=== PATIENT | male | born 1965 | race Caucasian/White ===

== ENCOUNTER 2020-05-29 16:35 | Emergency (ER) | payer MEDICAID, MEDICARE ==
[~2020-05-29] VITALS: Ht 182.9 cm; Wt 91.0 kg
[2020-05-29 16:49] VITALS: BP 129/79
[2020-05-29] MEDS ORDERED: OXYcodone/APAP 5/325MG TABLET PO ONE (17:30)
--- NOTE | 2020-05-29 17:34 | NUR ---
THROUGHPUT: Jillian TO REVIEW PT INS.
[2020-05-29] MEDS ORDERED: OXYcodone/APAP 5/325MG TABLET ONE (17:36)
[2020-05-29 17:48] LABS: BASOPHILS # (AUTO) 0.02 x10^3/uL (0-0.1); BASOPHILS % (AUTO) 0 % (0-1); EOSINOPHILS # (AUTO) 0.16 x10^3/uL (0-0.4); EOSINOPHILS % (AUTO) 2 % (1-7); LYMPHOCYTES # (AUTO) 1.28 x10^3/uL (1-3.4); LYMPHOCYTES % (AUTO) 16 % (22-44); MD NO; MEAN CORPUSCULAR HEMOGLOBIN 33.5 pg (27.5-34.5); MEAN CORPUSCULAR HGB CONC 33.7 g/dL (33.2-36.2); MEAN PLATELET VOLUME 8.2 fL (7.4-10.4); MONOCYTES # (AUTO) 0.72 x10^3/uL (0.2-0.8); MONOCYTES % (AUTO) 9 % (2-9); NEUTROPHILS # (AUTO) 5.81 x10^3/uL (1.8-6.8); NEUTROPHILS % (AUTO) 73 % (42-75); PLATELET COUNT 383 x10^3/uL (130-400); RED BLOOD COUNT 4.02 x10^6/uL (4.38-5.82); RED CELL DISTRIBUTION WIDTH 14.6 % (9.4-14.8)
[2020-05-29 18:02] LABS: ALANINE AMINOTRANSFERASE 60 U/L (12-78); ALBUMIN 3.2 g/dL (3.4-5.0); ANION GAP 9 mmol/L (5-15); CALCIUM 8.9 mg/dL (8.5-10.1); CHLORIDE 106 mmol/L (98-107); SALICYLATE LEVEL 3.3 mg/dL (2.8-20.0)
[2020-05-29 18:12] LABS: ALKALINE PHOSPHATASE 155 U/L (45-117); BILIRUBIN,TOTAL 0.3 mg/dL (0.2-1.0); CREATININE 0.93 mg/dL (0.7-1.3); TOTAL PROTEIN 6.8 g/dL (6.4-8.2)
--- NOTE | 2020-05-29 18:19 | NUR ---
INDUSTRIAL ENGINEERING DIRECTOR AT BEDSIDE. ASSESSMENT IN PROGRESS
--- NOTE | 2020-05-29 18:34 | NUR ---
THROUGHPUT: [facility] (NO) TO SEE PT TO DETERMINE IF THEY WILL ACCEPT PT.
--- NOTE | 2020-05-29 18:49 | NUR ---
PT ON HOSPITAL BED. DENIES FURTHER NEEDS AT THIS TIME
[2020-05-29 19:02] LABS: AMPHETAMINE SCREEN, URINE Negative (Negative); BARBITURATE SCREEN, URINE Negative (Negative); BENZODIAZEPINE SCREEN, URINE Negative (Negative); CANNABINOID SCREEN, URINE Negative (Negative); COCAINE SCREEN, URINE Negative (Negative); METHADONE SCREEN, URINE Negative (Negative); OPIATE SCREEN, URINE Negative (Negative)
--- NOTE | 2020-05-29 19:24 | NUR ---
KESHAV RN: PACKET FAXED TO [facility], [facility]
--- NOTE | 2020-05-29 19:41 | NUR ---
[facility] ACCEPT PT PER NO
--- NOTE | 2020-05-29 19:42 | NUR ---
PATIENT IS SLEEPING COMFORTABLY ON HOSPITAL BED, NAD, SITTER OUTSIDE ROOM. AWAITING FOR PLACEMENT RN WILL CONTINUE TO MONITOR
[2020-05-29] MEDS ORDERED: TRAZODONE 100MG TABLET PO SCH (21:00)
[2020-05-29] MEDS ORDERED: DULOXETINE 20 MG CAPSULE.DR PO SCH (21:00)
[2020-05-29] MEDS ORDERED: OLANZAPINE 10 MG TABLET PO SCH (21:00)
[2020-07-05] MEDS ORDERED: TRAZ-175 PO (12:54)
[2020-07-05] MEDS ORDERED: DULO20CA18 PO (12:54)
[2020-07-05] MEDS ORDERED: HYDR50TA99 PO (12:54)
[2020-07-05] MEDS ORDERED: BUPR100T11 PO (12:54)
[2020-07-05] MEDS ORDERED: LIDO700A20 TD (12:54)
[2020-07-05] MEDS ORDERED: CARIPRAZINE PO (12:54)
== END 2020-05-30 07:43 | disposition other institution (70) ==
LOC: ED 19:00
DX: R45.851 Suicidal ideations (principal); F33.9 Major depressive disorder, recurrent, unspecified; E11.9 Type 2 diabetes mellitus without complications; J44.9 Chronic obstructive pulmonary disease, unspecified; G89.29 Other chronic pain; F17.200 Nicotine dependence, unspecified, uncomplicated; Z90.89 Acquired absence of other organs; Z86.73 Personal history of transient ischemic attack (TIA), and cerebral infarction without residual deficits
CPT/HCPCS: 36415; 80053; 80307; 84443; 85025; 99284

== ENCOUNTER 2020-05-29 20:13 | Inpatient (IN) | payer MEDICARE ==
[~2020-05-29] VITALS: Ht 182.9 cm; Wt 90.0 kg
[2020-05-29] MEDS ORDERED: ONDANSETRON ODT 4 MG PO PRN (20:30)
[2020-05-29] MEDS ORDERED: ACETAMINOPHEN 325 MG TABLET PO PRN (20:30)
[2020-05-29] MEDS ORDERED: POLYETHYLENE GLYCOL 17 GM PACKET PO PRN (20:30)
[2020-05-29] MEDS ORDERED: BISACODYL 10 MG SUPP PR PRN (20:30)
[2020-05-29] MEDS ORDERED: DOCUSATE 100 MG CAPSULE PO PRN (20:30)
[2020-05-29] MEDS ORDERED: OLANZAPINE 10 MG TABLET PO SCH (21:00)
[2020-05-29] MEDS ORDERED: PLEASE ENTER HEIGHT AND WEIGHT MC SCH (21:00)
[2020-05-29 21:04] VITALS: BP 134/81
[2020-05-29 21:32] VITALS: BP 134/81
[2020-05-29] MEDS: DULOXETINE 20 MG CAPSULE.DR PO SCH (21:43)
[2020-05-29] MEDS: TRAZODONE 100MG TABLET PO SCH (21:43)
[2020-05-29 21:47] LABS: MICROSCOPIC INDICATED
[2020-05-30 03:25] LABS: CHOL/HDL RATIO 3.6; LDL/HDL RATIO 1.9 (0.5-3.0)
[2020-05-30 07:00] VITALS: BP 112/72
[2020-05-30] MEDS: DULOXETINE 20 MG CAPSULE.DR PO SCH ×2 (08:22→20:43)
[2020-05-30] MEDS: NICOTINE 21 MG/24 HR PATCH.TD24 TD ONE ×2 (13:00→13:01)
[2020-05-30 19:41] VITALS: BP 129/75
[2020-05-30] MEDS: ZIPRASIDONE 20MG CAPSULE PO SCH (20:43)
[2020-05-30] MEDS: TRAZODONE 100MG TABLET PO SCH (20:43)
[2020-05-31 07:24] VITALS: BP 125/64
[2020-05-31] MEDS: DULOXETINE 20 MG CAPSULE.DR PO SCH ×2 (07:58→20:28)
[2020-05-31 19:15] VITALS: BP 118/72
[2020-05-31] MEDS: TRAZODONE 100MG TABLET PO SCH (20:28)
[2020-05-31] MEDS: ZIPRASIDONE 20MG CAPSULE PO SCH (20:28)
[2020-06-01 07:14] VITALS: BP 131/72
[2020-06-01] MEDS: DULOXETINE 20 MG CAPSULE.DR PO SCH ×2 (08:18→19:57)
[2020-06-01] MEDS: LIDODERM 5% PATCH TD SCH ×2 (14:00→14:18)
[2020-06-01] MEDS: BUPROPION SR 100 MG TABLET PO SCH (14:15)
[2020-06-01 19:42] VITALS: BP 105/70
[2020-06-01] MEDS: LIDODERM REMOVE PATCH NOTE XX SCH (19:48)
[2020-06-01] MEDS: TRAZODONE 100MG TABLET PO SCH (19:57)
[2020-06-01] MEDS: ZIPRASIDONE 20MG CAPSULE PO SCH (19:57)
[2020-06-02] MEDS: LIDODERM REMOVE PATCH NOTE XX SCH ×2 (03:37→14:55)
[2020-06-02 07:23] VITALS: BP 128/76
[2020-06-02] MEDS: BUPROPION SR 100 MG TABLET PO SCH ×2 (09:04→12:15)
[2020-06-02] MEDS: DULOXETINE 20 MG CAPSULE.DR PO SCH ×2 (09:04→20:12)
[2020-06-02] MEDS: CEFDINIR 300 MG CAPSULE PO SCH ×2 (12:16→20:12)
[2020-06-02] MEDS: LIDODERM 5% PATCH TD SCH ×2 (14:54→14:55)
[2020-06-02 19:41] VITALS: BP 138/78
[2020-06-02] MEDS: ZIPRASIDONE 20MG CAPSULE PO SCH (20:12)
[2020-06-02] MEDS: TRAZODONE 100MG TABLET PO SCH (20:12)
[2020-06-03] MEDS: LIDODERM REMOVE PATCH NOTE XX SCH ×2 (02:30→14:30)
[2020-06-03 07:21] VITALS: BP 113/76
[2020-06-03] MEDS: CIPROFLOXACIN 500 MG TABLET PO SCH ×2 (09:08→20:28)
[2020-06-03] MEDS: DULOXETINE 20 MG CAPSULE.DR PO SCH ×2 (09:08→20:27)
[2020-06-03] MEDS: BUPROPION SR 100 MG TABLET PO SCH ×2 (09:08→12:33)
[2020-06-03] MEDS: LIDODERM 5% PATCH TD SCH ×2 (14:48→14:49)
[2020-06-03 19:35] VITALS: BP 132/70
[2020-06-03] MEDS: TRAZODONE 100MG TABLET PO SCH (20:28)
[2020-06-03] MEDS: ZIPRASIDONE 20MG CAPSULE PO SCH (20:28)
[2020-06-04] MEDS: LIDODERM REMOVE PATCH NOTE XX SCH ×2 (02:55→14:30)
[2020-06-04 07:05] VITALS: BP 124/84
[2020-06-04] MEDS: BUPROPION SR 100 MG TABLET PO SCH ×2 (08:32→11:32)
[2020-06-04] MEDS: CIPROFLOXACIN 500 MG TABLET PO SCH ×2 (08:32→20:31)
[2020-06-04] MEDS: DULOXETINE 20 MG CAPSULE.DR PO SCH ×2 (08:32→20:30)
[2020-06-04] MEDS: LIDODERM 5% PATCH TD SCH ×2 (14:36→14:37)
[2020-06-04 19:42] VITALS: BP 137/76
[2020-06-04] MEDS: TRAZODONE 100MG TABLET PO SCH (20:31)
[2020-06-04] MEDS: ZIPRASIDONE 20MG CAPSULE PO SCH (20:31)
[2020-06-05 07:00] VITALS: BP 125/80
[2020-06-05] MEDS: LIDODERM REMOVE PATCH NOTE XX SCH ×2 (08:00→14:55)
[2020-06-05] MEDS: CIPROFLOXACIN 500 MG TABLET PO SCH ×2 (08:45→20:05)
[2020-06-05] MEDS: BUPROPION SR 100 MG TABLET PO SCH ×2 (08:45→11:27)
[2020-06-05] MEDS: DULOXETINE 20 MG CAPSULE.DR PO SCH ×2 (08:45→20:05)
[2020-06-05] MEDS: LIDODERM 5% PATCH TD SCH ×2 (14:53→14:54)
[2020-06-05 19:00] VITALS: BP 124/64
[2020-06-05] MEDS: ZIPRASIDONE 20MG CAPSULE PO SCH (20:05)
[2020-06-05] MEDS: TRAZODONE 100MG TABLET PO SCH (20:05)
[2020-06-06] MEDS: LIDODERM REMOVE PATCH NOTE XX SCH ×2 (03:05→14:30)
[2020-06-06 07:23] VITALS: BP 120/82
[2020-06-06] MEDS: BUPROPION SR 100 MG TABLET PO SCH ×3 (08:35→12:27)
[2020-06-06] MEDS: CIPROFLOXACIN 500 MG TABLET PO SCH ×2 (08:35→20:00)
[2020-06-06] MEDS: DULOXETINE 20 MG CAPSULE.DR PO SCH ×2 (08:35→20:00)
[2020-06-06] MEDS ORDERED: LIDO700A20 TD (10:40)
[2020-06-06] MEDS ORDERED: BUPR-173 PO (10:40)
[2020-06-06] MEDS ORDERED: ZIPR20CA2 PO (10:40)
[2020-06-06] MEDS ORDERED: DULO20CA18 PO (10:40)
[2020-06-06 15:07] VITALS: BP 138/65
[2020-06-06] MEDS: LIDODERM 5% PATCH TD SCH ×2 (15:14→15:23)
[2020-06-06 20:00] VITALS: BP 131/78
[2020-06-06] MEDS: TRAZODONE 100MG TABLET PO SCH (20:00)
[2020-06-06] MEDS: ZIPRASIDONE 20MG CAPSULE PO SCH (20:00)
[2020-06-07] MEDS: LIDODERM REMOVE PATCH NOTE XX SCH (02:30)
[2020-06-07 07:22] VITALS: BP 125/77
[2020-06-07] MEDS: CIPROFLOXACIN 500 MG TABLET PO SCH (08:11)
[2020-06-07] MEDS: DULOXETINE 20 MG CAPSULE.DR PO SCH (08:11)
[2020-06-07] MEDS: BUPROPION SR 100 MG TABLET PO SCH (08:11)
== END 2020-06-07 09:09 | disposition home or self-care (01) | DRG 885 ==
LOC: 3E 20:17
PROVIDERS: ADMIT Psychiatry & Neurology Psychosomatic Medicine; ATTEND Psychiatry & Neurology Psychosomatic Medicine
DX: F25.1 Schizoaffective disorder, depressive type (principal); N39.0 Urinary tract infection, site not specified; R45.851 Suicidal ideations; F31.9 Bipolar disorder, unspecified; F10.21 Alcohol dependence, in remission; F17.200 Nicotine dependence, unspecified, uncomplicated; G89.29 Other chronic pain; Y90.9 Presence of alcohol in blood, level not specified; J44.9 Chronic obstructive pulmonary disease, unspecified; Z79.899 Other long term (current) drug therapy
CPT/HCPCS: 36415; 71045; 80061; 81001; 82607; 84439; 87077; 87086; 87186; 93005

== ENCOUNTER 2020-06-23 18:41 | Emergency (ER) | payer MEDICARE ==
[~2020-06-23] VITALS: Ht 182.9 cm; Wt 94.2 kg
[~2020-06-23 18:41] MED LIST: BUPR-173 PO; DULO20CA18 PO; LIDO700A20 TD; ZIPR20CA2 PO
--- NOTE | 2020-06-23 19:07 | NUR ---
SITTER IN VIEW OF PATIENT. PATIENT IS NOT ON LEGAL HOLD AT THIS POINT IN THE PLAN OF CARE. PROVIDER WILL SPEAK WITH SOCIAL WORK IN ATTEMPT TO GAIN ACCESS TO MEDICATIONS FOR PATIENT. PATIENT STATED THAT HE BELIEVES HE FEELS WITH THE MEDICATIONS HE WOULD BE BETTER.
[2020-06-23 19:41] LABS: BASOPHILS # (AUTO) 0.02 x10^3/uL (0-0.1); BASOPHILS % (AUTO) 0 % (0-1); EOSINOPHILS % (AUTO) 2 % (1-7); LYMPHOCYTES # (AUTO) 1.68 x10^3/uL (1-3.4); LYMPHOCYTES % (AUTO) 17 % (22-44); MD NO; MEAN CORPUSCULAR HEMOGLOBIN 32.8 pg (27.5-34.5); MEAN CORPUSCULAR HGB CONC 33.7 g/dL (33.2-36.2); MEAN CORPUSCULAR VOLUME 97.3 fL (81-97); MEAN PLATELET VOLUME 8.9 fL (7.4-10.4); MONOCYTES # (AUTO) 0.63 x10^3/uL (0.2-0.8); MONOCYTES % (AUTO) 6 % (2-9); NEUTROPHILS # (AUTO) 7.42 x10^3/uL (1.8-6.8); NEUTROPHILS % (AUTO) 75 % (42-75); PLATELET COUNT 266 x10^3/uL (130-400); RED BLOOD COUNT 4.21 x10^6/uL (4.38-5.82); RED CELL DISTRIBUTION WIDTH 14.5 % (9.4-14.8)
[2020-06-23 19:48] LABS: ALANINE AMINOTRANSFERASE 112 U/L (12-78); ALBUMIN 3.6 g/dL (3.4-5.0); ANION GAP 7 mmol/L (5-15); CALCIUM 9.4 mg/dL (8.5-10.1); CHLORIDE 108 mmol/L (98-107); CREATININE 0.69 mg/dL (0.7-1.3); SALICYLATE LEVEL 4.1 mg/dL (2.8-20.0)
[2020-06-23 19:51] LABS: ALKALINE PHOSPHATASE 272 U/L (45-117); BILIRUBIN,TOTAL 0.3 mg/dL (0.2-1.0); TOTAL PROTEIN 7.7 g/dL (6.4-8.2)
--- NOTE | 2020-06-23 20:27 | NUR ---
PATIENT GIVEN FOOD, AND HYDRATION PER REQUEST. PATIENT DENIES ANY FURTHER NEEDS AT THIS TIME. SITTER WITHIN VIEW OF PATIENT. WILL CONTINUE TO MONITOR.
[2020-06-23 20:44] LABS: AMPHETAMINE SCREEN, URINE Negative (Negative); BARBITURATE SCREEN, URINE Negative (Negative); BENZODIAZEPINE SCREEN, URINE Negative (Negative); CANNABINOID SCREEN, URINE Negative (Negative); COCAINE SCREEN, URINE Negative (Negative); METHADONE SCREEN, URINE Negative (Negative); OPIATE SCREEN, URINE Negative (Negative)
[2020-06-23] MEDS ORDERED: LIDODERM 5% PATCH TD ONE ×2 (21:30→21:41)
--- NOTE | 2020-06-23 21:46 | NUR ---
LIDODERM PATCH APPLIED TO PATIENT, PATIETN UPDATED ON PLAN OF CARE. PATIENT RESTING IN BED, EVEN-UNLABORED RESPIRATIONS NOTED. NO ADDITIONAL NEEDS AT THIS TIME. SITTER WITHIN VIEW OF PATIENT. WILL CONTINUE TO MONITOR.
--- NOTE | 2020-06-23 22:30 | NUR ---
PATIENT RESTING IN BED, EVEN-UNLABORED RESPIRATIONS NOTED. NO ADDITIONAL NEEDS AT THIS TIME. SITTER WITHIN VIEW OF PATIENT. WILL CONTINUE TO MONITOR.
--- NOTE | 2020-06-23 23:26 | NUR ---
PATIENT MOVED TO HOSPITAL BED. TOLERATED WELL. UP TO RESTROOM WITHOUT COMPLICATIONS. NO NOTED ADDITIONAL NEEDS AT THIS TIME. SITTER WITHIN VIEW OF PATIENT. WILL CONTINUE TO MONITOR.
--- NOTE | 2020-06-24 00:30 | NUR ---
PATIENT RESTING IN BED, EVEN-UNLABORED RESPIRATIONS NOTED. NO ADDITIONAL NEEDS AT THIS TIME. SITTER WITHIN VIEW OF PATIENT. WILL CONTINUE TO MONITOR.
--- NOTE | 2020-06-24 01:30 | NUR ---
PATIENT RESTING IN BED, EVEN-UNLABORED RESPIRATIONS NOTED. NO ADDITIONAL NEEDS AT THIS TIME. SITTER WITHIN VIEW OF PATIENT. WILL CONTINUE TO MONITOR.
--- NOTE | 2020-06-24 02:42 | NUR ---
[facility] unit physically full at this time. Patient with Medicare I/P insurance so packet faxed to [facility], [facility], [facility], [facility], and [facility].
--- NOTE | 2020-06-24 02:44 | NUR ---
Conformation of faxes received.
--- NOTE | 2020-06-24 03:31 | NUR ---
PATIENT RESTING IN BED, EVEN-UNLABORED RESPIRATIONS NOTED. NO ADDITIONAL NEEDS AT THIS TIME. SITTER WITHIN VIEW OF PATIENT. WILL CONTINUE TO MONITOR.
--- NOTE | 2020-06-24 03:51 | NUR ---
Spoke with Kamryn from [facility] who states that patient only has 3 "lifetime days" left and after that would have to self pay for his visit there. Kamryn asks that we ask patient if he would be agreeable to this.
--- NOTE | 2020-06-24 04:36 | NUR ---
PATIENT RESTING IN BED, EVEN-UNLABORED RESPIRATIONS NOTED. NO ADDITIONAL NEEDS AT THIS TIME. SITTER WITHIN VIEW OF PATIENT. WILL CONTINUE TO MONITOR.
--- NOTE | 2020-06-24 05:30 | NUR ---
PATIENT RESTING IN BED, EVEN-UNLABORED RESPIRATIONS NOTED. NO ADDITIONAL NEEDS AT THIS TIME. SITTER WITHIN VIEW OF PATIENT. WILL CONTINUE TO MONITOR.
--- NOTE | 2020-06-24 06:27 | NUR ---
VITAL SIGNS UPDATED, NO CHANGE IN PATIENT STATUS. UPDATED PATIENT ON PLAN OF CARE. SITTER WITHIN VIEW OF PATIENT. WILL CONTINUE TO MONITOR.
--- NOTE | 2020-06-24 06:51 | NUR ---
REPORT GIVEN TO MANJU WERNER
--- NOTE | 2020-06-24 07:08 | NUR ---
[facility] HAND-OFF REPORT RECEIVED FROM MANJU DAVE. ASSUMING CARE OF PATIENT. PT IS SLEEPING AT THIS TIME. CHEST RISE AND FALL OBSERVED. PATIENT REMAINS UNDER CONSTANT SUPERVISION OF SITTER AND REMAINS SAFE.
[2020-06-24 09:00] VITALS: BP 120/77
--- NOTE | 2020-06-24 11:41 | NUR ---
TASK RN: REPORT GIVEN TO [facility] BUI SUP. ALL QUESTIONS ANSWERED.
== END 2020-06-24 13:42 ==
LOC: ED 21:55
DX: R45.851 Suicidal ideations (principal); F32.9 Major depressive disorder, single episode, unspecified; F17.200 Nicotine dependence, unspecified, uncomplicated; Z72.9 Problem related to lifestyle, unspecified; E11.9 Type 2 diabetes mellitus without complications; G89.29 Other chronic pain; J44.9 Chronic obstructive pulmonary disease, unspecified; F17.210 Nicotine dependence, cigarettes, uncomplicated; Z90.89 Acquired absence of other organs; Z86.73 Personal history of transient ischemic attack (TIA), and cerebral infarction without residual deficits
CPT/HCPCS: 36415; 80053; 80307; 85025; 99285